=== PATIENT | male | born 1990 | race Caucasian/White ===

== ENCOUNTER 2025-03-18 14:02 | Outpatient (CLI) | payer BC, SELFPAY | END 2025-03-18 14:03 | disposition home or self-care (01) | PROVIDERS: PCP Family Medicine; Visit Provider Family Medicine | DX: R10.11 Right upper quadrant pain (principal) | CPT/HCPCS: 80048; 80076; 85025 ==

== ENCOUNTER 2025-03-21 15:37 | Outpatient (CLI) | payer BC, SELFPAY ==
--- NOTE | 2025-03-21 16:00 | CRLHL7_ITS ---
For Patients: As a result of the Century Cures Act, medical imaging exams and procedure reports are released immediately into your electronic medical record. You may view this report before your referring provider. If you have questions, please contact your health care provider. INDICATION: RUQ pain, family hx of gallbladder stones COMPARISON: none TECHNIQUE: Real time tian scale imaging and color Doppler analysis was performed of the right upper quadrant. FINDINGS: Liver echotexture is coarsened and increased with patchy areas of sparing near the gallbladder. Liver measures 15.0 cm. Aorta and pancreas are obscured by bowel gas. Normal IVC. The gallbladder is of normal size and there is no evidence of intraluminal stones or sludge. The gallbladder wall measures 2.7 mm in thickness. The common bile duct is of normal size and measures 3.6 mm in diameter at the level of the poli hepatis. There is no evidence of a stone or hydronephrosis within the right kidney. The right kidney measures 11.9 cm in length. IMPRESSION: Severe hepatic steatosis. No gallstones. Dictated by Sherwin Pappas MD @ 03/22/2025 6:31:36 AM (Electronically Signed)
== END 2025-03-21 15:38 | disposition home or self-care (01) ==
LOC: US 15:37
PROVIDERS: PCP Family Medicine; Visit Provider Family Medicine
DX: R10.11 Right upper quadrant pain (principal); K76.0 Fatty (change of) liver, not elsewhere classified
CPT/HCPCS: 76705

== ENCOUNTER 2025-06-11 14:58 | Outpatient (CLI) | payer BC, SELFPAY ==
--- NOTE | 2025-06-11 16:00 | CRLHL7_ITS ---
For Patients: As a result of the Century Cures Act, medical imaging exams and procedure reports are released immediately into your electronic medical record. You may view this report before your referring provider. If you have questions, please contact your health care provider. Indication: RUQ PAIN Technique: CT Abdomen/Pelvis 93CC ISOVUE 370 intravenous contrast AND WATER PREP Please note that all CT scans at this facility use dose modulation, iterative reconstruction, and/or weight-based dosing when appropriate to reduce radiation dose to as low as reasonably achievable. Comparison: Abdomen ultrasound 03/21/2025 Findings: Lung bases are clear. Mild decreased attenuation of the hepatic parenchyma. The spleen is normal. Normal pancreas. Normal gallbladder. Adrenal glands are within normal limits. Normal kidneys. Normal bladder and ureters. No hiatal hernia. No retroperitoneal or mesenteric adenopathy. Normal appendix. No bowel obstruction or free air. No free fluid or abscess. No pelvic or inguinal adenopathy. Posterior ridging at L5-S1. No fracture. Impression: Mild hepatic steatosis. Remainder unremarkable. Please note that all CT scans at this facility use dose modulation, iterative reconstruction, and/or weight-based dosing when appropriate to reduce radiation dose to as low as reasonably achievable. Dictated by Sherwin Pappas MD @ 06/17/2025 9:55:14 AM (Electronically Signed)
== END 2025-06-11 14:59 | disposition home or self-care (01) ==
PROVIDERS: PCP Family Medicine; Visit Provider Family Medicine
DX: R10.11 Right upper quadrant pain (principal); K76.0 Fatty (change of) liver, not elsewhere classified
CPT/HCPCS: 74177; Q9967

== ENCOUNTER 2025-06-18 13:55 | Outpatient (CLI) | payer BC, SELFPAY ==
--- NOTE | 2025-06-18 14:30 | CRLHL7_ITS ---
For Patients: As a result of the 21st Century Cures Act, medical imaging exams and procedure reports are released immediately into your electronic medical record. You may view this report before your referring provider. If you have questions, please contact your health care provider. INDICATION: 34-year-old man with history of right upper quadrant abdominal pain TECHNIQUE: 7.3 mCi Tc 99m Mebrofenin were administered intravenously and serial static images were obtained over the anterior abdomen over 60 minutes, demonstrating radiotracer uptake within the gallbladder and demonstrating tracer exiting into the small bowel. Subsequently, 1.73 Micrograms cholecystokinin was administered intravenously and the anterior abdomen was serially imaged with static views for another 30 minutes. COMPARISON: CT abdomen/pelvis 06/11/2025 FINDINGS: There is normal radionuclide activity in the liver, common bile duct, gallbladder and small bowel. There is no evidence for cystic or common duct obstruction or intrinsic liver disease. After administration of cholecystokinin, tracer is demonstrated exiting the gallbladder into the common bile duct and small bowel. The gallbladder ejection fraction measures 97%. Normal range for GB EF: Equal to or greater than 35%. IMPRESSION: 1. Normal hepatobiliary scan. 2. Gallbladder ejection fraction measures 97%, within normal limits. Dictated by Johny Magana MD @ 06/18/2025 11:49:36 PM (Electronically Signed)
== END 2025-06-18 13:56 | disposition home or self-care (01) ==
LOC: NM 13:55
PROVIDERS: PCP Family Medicine; Visit Provider Family Medicine
DX: R10.11 Right upper quadrant pain (principal)
CPT/HCPCS: 78227; A9537; J2805